=== PATIENT | male | born 1970 | race Two or more races ===

== ENCOUNTER 2016-04-22 18:55 | Emergency (ER) | payer OTHER ==
[2016-04-22 19:44] VITALS: BP 128/71
[2016-04-22] MEDS ORDERED: Ketorolac INJ* 60 MG/2 ML VIAL IM ONE (22:57)
[2016-04-22] MEDS ORDERED: HYDROcodone/ACETAMIN 5-325 MG* 1 TAB PO ONE (22:57)
[2016-04-22] MEDS ORDERED: Ibuprofen TAB* 400 MG PO ONE (23:55)
[2016-04-22] MEDS ORDERED: Ibuprofen TAB* 400 MG ONE (23:55)
[2016-04-22] MEDS ORDERED: oxyCODONE/Acetamin 5/325 MG* TAB PO ONE (23:57)
--- NOTE | 2016-04-23 00:25 | ED ---
ITomy,Andrés, scribed for Wallace Treadwell MD on 04/22/16 at 2301 . Lower Extremity - HPI Summary HPI Summary: This 46 y/o male presents to ED for acute LLE calf pain secondary to ski injury this afternoon. His LLE did not detach from ski when he fell forward. Pt states that he took unspecified pain med to control his pain without much relief. - History of Current Complaint Chief Complaint: EDExtremityLower Stated Complaint: LEG INJURY Time Seen by Provider: 04/22/16 22:48 Hx Obtained From: Patient Pain Intensity: 7 - Allergies/Home Medications Allergies/Adverse Reactions: Allergies Allergy/AdvReac Type Severity Reaction Status Date / Time No Known Allergies Allergy Verified 04/22/16 19:40 PMH/Surg Hx/FS Hx/Imm Hx Previously Healthy: Yes - Denies any PMHx. Infectious Disease History: No Infectious Disease History: Reports: Traveled Outside the [place] in Last 30 Days - Family History Known Family History: Negative: Hypertension - Social History Alcohol Use: None Hx Substance Use: No Substance Use Type: Reports: None Hx Tobacco Use: No Smoking Status (MU): Never Smoked Tobacco Review of Systems Negative: Fever Negative: Erythema Negative: Sore Throat Negative: Chest Pain Negative: Shortness Of Breath, Cough Negative: Abdominal Pain, Nausea Negative: dysuria Positive: Other - left calf pain. Negative: Edema Neurological: Other Negative: Weakness - negative for dizziness Negative: Anxious, Depressed All Other Systems Reviewed And Are Negative: Yes Physical Exam - Summary Physical Exam Summary: Constitutional: Well-developed, Well-nourished, Alert, Cooperative Skin: Warm, Dry HENT: Normocephalic; No Racoons eyes; No battles sign; No abrasion; No contusion ; No dental trauma; Eyes: EOM normal, PERRL Neck: Trachea is midline. No stridor; No JVD; No step off; No posterior cervical spine tenderness Cardio: Rhythm regular, rate normal Heart sounds normal; Intact distal pulses; The pedal pulses are 2+ and symmetric. Radial pulses are 2+ and symmetric. Pulmonary/Chest wall: Effort normal; Breath sounds normal; Equal chest rise; No flail segment; No rib tenderness; No sternal tenderness Abd: Soft, Appearance normal. No distension; No tenderness; No palpable pulsatile mass; No Cullens sign; No Monae-Turners sign Musculoskeletal: Garcia test is negative for LLE. Neuro: Alert, Oriented x3, Strength 5/5 all extremities. : No blood at urethral meatus Psych: Mood and affect Normal Triage Information Reviewed: Yes Vital Signs On Initial Exam: Initial Vitals Temp Pulse Resp BP Pulse Ox 98.8 F 82 20 128/71 99 04/22/16 19:38 04/22/16 19:38 04/22/16 19:38 04/22/16 19:38 04/22/16 19:38 Vital Signs Reviewed: Yes Diagnostics - Vital Signs Vital Signs Temp Pulse Resp BP Pulse Ox 04/22/16 19:38 98.8 F 82 20 128/71 99 - Laboratory Lab Statement: Any lab studies that have been ordered have been reviewed, and results considered in the medical decision making process. - Radiology LLE Xray Interpretation: No Acute Changes Radiology Interpretation Completed By: ED Physician Re-Evaluation - Re-Evaluation First Eval Re-Evaluation Time: 00:03 Comment: Plan of care involving discharge, crutch use, and follow up with [facility] is discussed. Pt is agreeable. Lower Extremity Course/Dx - Course Course Of Treatment: I attempted to e-prescribe, but could not transmit as patient's zip code in [facility] was not recognized as valid. Paper scripts for ibuprofen and percocet issued Assessment/Plan: This 46 y/o male presents to ED for LLE calf pain secondary to ski injury this afternoon. Pt had his LLE still attached to his ski when he fell forward. X-ray indicates negative osseous injury. Pt is safe for discharge , and pt is agreeable. - Diagnoses Provider Diagnoses: Strain of calf muscle Discharge - Discharge Plan Condition: Stable Disposition: HOME Prescriptions: Ibuprofen TAB* [Motrin TAB* 600 MG] 600 mg PO Q6H PRN #60 tab PRN Reason: Pain Scale 6-10 oxyCODONE/Acetamin 5/325 MG* [Percocet 5/325 TAB*] 1 tab PO Q6H PRN #15 tab MDD 4 PRN Reason: Pain Scale 6-10 Patient Education Materials: Leg Pain (ED), Crutch Instructions (ED) Additional Instructions: Be sure to follow up with [facility] in 3 days. Return to the emergency department for changing or worsening symptoms The documentation as recorded by the Tomy munoz Soohyun accurately reflects the service I personally performed and the decisions made by me, Wallace Treadwell MD.
--- NOTE | 2016-04-23 07:49 | RAD ---
HISTORY: Fall, calf pain COMPARISONS: None VIEWS: 4, Frontal and lateral views of the left foreleg FINDINGS: BONE DENSITY: Normal. BONES: There is no displaced fracture. JOINTS: There is no arthropathy. ALIGNMENT: There is no dislocation. SOFT TISSUES: Unremarkable. OTHER FINDINGS: None. IMPRESSION: NO ACUTE OSSEOUS INJURY. IF SYMPTOMS PERSIST, RECOMMEND REPEAT IMAGING.
== END 2016-04-23 00:30 | disposition home or self-care (01) ==
LOC: ED 18:55
DX: M79.605 Pain in left leg (principal); S86.912A Strain of unspecified muscle(s) and tendon(s) at lower leg level, left leg, initial encounter; W19.XXXA Unspecified fall, initial encounter; Y93.9 Activity, unspecified; Y92.9 Unspecified place or not applicable
CPT/HCPCS: 96372; 99283; A9270-GY